=== PATIENT | female | born 1980 | race Hispanic/Latino ===

== ENCOUNTER 2018-10-21 20:05 | Emergency (ER) | payer SELFPAY ==
[2018-10-21 21:22] VITALS: O2SAT 96
[2018-10-21] MEDS: KETOROLAC TROMETHAMINE INJ 30 MG/ML VIAL IM ONE (22:20)
--- NOTE | 2018-10-21 22:45 | CT ---
EXAM: CT Abdomen and Pelvis Without Intravenous Contrast CLINICAL HISTORY: 38 years old and is Female; RUQ abdominal pain TECHNIQUE: Axial computed tomography images of the abdomen and pelvis without intravenous contrast. Sagittal and coronal reformatted images were created and reviewed. This CT exam was performed using one or more of the following dose reduction techniques: automated exposure control, adjustment of the mA and/or kV according to patient size, and/or use of iterative reconstruction technique. COMPARISON: No relevant prior studies available. FINDINGS: Limitations: None. Lung bases: Unremarkable. No mass. No consolidation. ABDOMEN: Liver: Unremarkable. Gallbladder and bile ducts: Unremarkable. No calcified stones. No ductal dilation. Pancreas: Unremarkable. No ductal dilation. Spleen: Borderline enlarged spleen. Adrenals: Unremarkable. No mass. Kidneys and ureters: Unremarkable. No obstructing stones. No hydronephrosis. Stomach and bowel: Scattered colonic diverticulosis present. No diverticulitis. Moderate colonic stool. No obstruction. PELVIS: Appendix: Appendix well seen and appears normal. Bladder: Unremarkable. No stones. Reproductive: Unremarkable as visualized. ABDOMEN and PELVIS: Intraperitoneal space: Unremarkable. No free air. No significant fluid collection. Bones/joints: No acute fracture. No dislocation. Soft tissues: Unremarkable. Vasculature: Unremarkable. No abdominal aortic aneurysm. Lymph nodes: Unremarkable. No enlarged lymph nodes. IMPRESSION: No acute findings. Electronically signed by: Annie Paige MD 10/21/2018 10:43 PM CDT
--- NOTE | 2018-10-21 23:02 | ED.PDOC ---
History of Present Illness - General Chief Complaint: GI Problem Stated Complaint: ruq pain after eating Time Seen by Provider: 10/21/18 21:50 Information Source: patient, family Exam Limitations: no limitations - History of Present Illness Initial Comments: patient comes in today with 1 day history of right upper quadrant abdominal pain. Patient states this morning she was able to take Tylenol and felt that the pain came back this afternoon and was severe. Patient states for the past couple of days she's never had abdominal pain. However, now after she eats her stomach feels distended and she has a severe pain in the right upper quadrant it's worth with deep inspiration. She denies any reflux or nausea. She's had no emesis or diarrhea. She has had normal bowel movements and normal urine output. Patient denies any fever or chills. She's had no sick contacts. She denies any questionable by mouth intake. Abdominal Pain Onset Location: RUQ Pain Radiation: no radiation Quality: severe, cramping, sharpness Timing/Duration: 24 hours, getting worse Improving Factors: nothing Worsening Factors: eating Associated Symptoms: denies symptoms Review of Systems - Review of Systems Constitutional: States: no symptoms reported. Denies: chills, fever EENTM: States: no symptoms reported. Denies: blurred vision, ear pain, nose congestion Respiratory: States: no symptoms reported. Denies: cough, short of breath Cardiology: States: no symptoms reported. Denies: chest pain Gastrointestinal/Abdominal: States: abdominal pain. Denies: constipation, diarrhea, nausea, vomiting Genitourinary: States: no symptoms reported Musculoskeletal: States: no symptoms reported Past Medical History (General) - Patient Medical History Hx Seizures: No Hx Stroke: No Hx Dementia: No Hx Asthma: No Hx of COPD: No Hx Cardiac Disorders: No Hx Congestive Heart Failure: No Hx Pacemaker: No Hx Hypertension: No Hx Thyroid Disease: No Hx Diabetes: No Hx Gastroesophageal Reflux: No Hx Renal Disease: No Hx Cancer: No Hx of HIV: No Hx Hepatitis C: No Hx MRSA: No Surgical History: no surgical history - Vaccination History Hx Tetanus, Diphtheria Vaccination: No Hx Influenza Vaccination: No Hx Pneumococcal Vaccination: No Immunizations Up to Date: No - Social History Hx Tobacco Use: No Hx Alcohol Use: No Hx Substance Use: No Hx Substance Use Treatment: No Hx Depression: No - Triage Comment ED Triage Comment: pt reports she has never been to a doctor for anything. No known medical issue. Family Medical History - Family History Mother Family History: Unknown Physical Exam - Physical Exam General Appearance: Alert, Restless Eyes, Ears, Nose, Throat Exam: PERRL/EOMI, normal ENT inspection, TMs normal, pharynx normal Neck: non-tender, full range of motion, supple, normal inspection Respiratory: chest non-tender, lungs clear, normal breath sounds, no respiratory distress Cardiovascular/Chest: normal peripheral pulses, regular rate, rhythm, no edema, no JVD, no murmur Gastrointestinal/Abdominal: soft, tenderness - TTP to RUQ without rebound or guarding positive Georgette's sign Back Exam: normal inspection, no CVA tenderness Neurologic: alert, oriented x 3 Progress - Progress Progress: 10/21/18 23:05 patient feels much better after toradol. no pain at this time. discussed need to follow up to schedule hida scan and need to monitor diet - Results/Orders Results/Orders: Laboratory Results WBC 8.4 K/mm3 (4.8-10.8) 10/21/18 21:58 RBC 5.12 M/mm3 (4.20-5.40) 10/21/18 21:58 Hgb 15.3 gm/dL (12.0-16.0) 10/21/18 21:58 Hct 46.5 % (36.0-47.0) 10/21/18 21:58 MCV 90.8 fl (81.0-99.0) 10/21/18 21:58 MCH 30.0 pg (27.0-31.0) 10/21/18 21:58 MCHC 33.0 g/dL (33.0-37.0) 10/21/18 21:58 RDW 13.5 % (11.5-14.5) 10/21/18 21:58 Plt Count 267 K/mm3 (130-400) 10/21/18 21:58 MPV 8.7 fl (7.40-10.4) 10/21/18 21:58 Absolute Neuts (auto) 4.90 K/uL (1.8-6.8) 10/21/18 21:58 Absolute Lymphs (auto) 2.70 K/uL (1.0-3.4) 10/21/18 21:58 Absolute Monos (auto) 0.60 K/uL (0.2-0.8) 10/21/18 21:58 Absolute Eos (auto) 0.10 K/uL (0.0-0.4) 10/21/18 21:58 Absolute Basos (auto) 0.10 K/uL (0.0-0.1) 10/21/18 21:58 Neutrophils % 58.2 % (42.0-78.0) 10/21/18 21:58 Lymphocytes % 32.6 % (20.0-50.0) 10/21/18 21:58 Monocytes % 7.1 % (2.0-9.0) 10/21/18 21:58 Eosinophils % 1.4 % (1.0-5.0) 10/21/18 21:58 Basophils % 0.7 % (0.0-2.0) 10/21/18 21:58 Sodium 137 mmol/L (135-145) 10/21/18 21:58 Potassium 3.6 mmol/L (3.6-5.0) 10/21/18 21:58 Chloride 105 mmol/L (101-111) 10/21/18 21:58 Carbon Dioxide 23 mmol/L (21-31) 10/21/18 21:58 Anion Gap 12.6 (12-18) 10/21/18 21:58 BUN 13 mg/dL (7-18) 10/21/18 21:58 Creatinine 0.64 mg/dL (0.6-1.3) 10/21/18 21:58 BUN/Creatinine Ratio 20.3 (10-20) H 10/21/18 21:58 Random Glucose 103 mg/dL (70-105) 10/21/18 21:58 Serum Osmolality 274.2 mOsm/L (275-295) L 10/21/18 21:58 Calcium 9.5 mg/dL (8.4-10.2) 10/21/18 21:58 Total Bilirubin 0.2 mg/dL (0.2-1.0) 10/21/18 21:58 AST 23 IU/L (10-42) 10/21/18 21:58 ALT 22 IU/L (10-60) 10/21/18 21:58 Alkaline Phosphatase 94 IU/L (42-121) 10/21/18 21:58 Serum Total Protein 8.0 gm/dL (6.4-8.2) 10/21/18 21:58 Albumin 4.3 g/dl (3.2-5.5) 10/21/18 21:58 Globulin 3.7 gm/dL (2.3-3.5) H 10/21/18 21:58 Albumin/Globulin Ratio 1.2 (1.1-1.9) 10/21/18 21:58 Amylase 40 U/L (28-100) 10/21/18 21:58 Lipase 29 U/L (22-51) 10/21/18 21:58 Serum HCG, Qual Negative (NEGATIVE) 10/21/18 21:58 Urine HCG, Qual Cancelled 10/21/18 21:58 Patient Name: LENORA WASSERMAN Gender: Female Date of : 1980 Referring Physician: TERRELL GUERRERO Organization: [facility] Accession Number: [id number] Requested Date: October 21, 2018 21:51 Report Status: Final Requested Procedure: 1 Procedure Description: Abdoment/Pelvis w/o Contrast Modality: CT Findings Reporting MD: Annie Paige MD: Not available Dictation Time: Able Bodied Seaman: Not available Bag Bundler Date: EXAM: CT Abdomen and Pelvis Without Intravenous Contrast CLINICAL HISTORY: 38 years old and is Female; RUQ abdominal pain TECHNIQUE: Axial computed tomography images of the abdomen and pelvis without intravenous contrast. Sagittal and coronal reformatted images were created and reviewed. This CT exam was performed using one or more of the following dose reduction techniques: automated exposure control, adjustment of the mA and/or kV according to patient size, and/or use of iterative reconstruction technique. COMPARISON: No relevant prior studies available. FINDINGS: Limitations: None. Lung bases: Unremarkable. No mass. No consolidation. ABDOMEN: Liver: Unremarkable. Gallbladder and bile ducts: Unremarkable. No calcified stones. No ductal dilation. Pancreas: Unremarkable. No ductal dilation. Spleen: Borderline enlarged spleen. Adrenals: Unremarkable. No mass. Kidneys and ureters: Unremarkable. No obstructing stones. No hydronephrosis. Stomach and bowel: Scattered colonic diverticulosis present. No diverticulitis. Moderate colonic stool. No obstruction. PELVIS: Appendix: Appendix well seen and appears normal. Bladder: Unremarkable. No stones. Reproductive: Unremarkable as visualized. ABDOMEN and PELVIS: Intraperitoneal space: Unremarkable. No free air. No significant fluid collection. Bones/joints: No acute fracture. No dislocation. Soft tissues: Unremarkable. Vasculature: Unremarkable. No abdominal aortic aneurysm. Lymph nodes: Unremarkable. No enlarged lymph nodes. [facility] [address] [place] [address], [address] [place], [place] T [phone] F [phone] Digital Theatre - Report exported on October 21, 2018 23:04:88 [id number] - Page 2 of 2 IMPRESSION: No acute findings. Departure - Departure Clinical Impression: Abdominal pain Qualifiers: Abdominal location: right upper quadrant Qualified Code(s): R10.11 - Right upper quadrant pain Disposition: Discharge to Home or Self Care Condition: Fair Departure Forms: ED Discharge - Pt. Copy, Patient Portal Self Enrollment Prescriptions: Tramadol HCl [Ultram] 50 mg PO Q8HR PRN #10 tab PRN Reason: Pain Home Medications: Ambulatory Orders Tramadol HCl [Ultram] 50 mg PO Q8HR PRN #10 tab 10/21/18 Additional Instructions: limit fat in diet and spices. Return to ER for intractable emesis or increase in pain. follow up with pcp in 2-3 days to discuss HIDA scan
[2018-10-21 23:18] VITALS: BP 133/74; TEMP 97.9
== END 2018-10-21 23:18 | disposition home or self-care (01) ==
LOC: ER 20:05
DX: R10.11 Right upper quadrant pain (principal)
CPT/HCPCS: 36415; 74176; 80053; 82150; 83690; 84703; 85025; J1885